=== PATIENT | female | born 1955 | race African-American/Black ===

== ENCOUNTER 2020-02-18 09:20 | Inpatient (IN) | payer OTHER ==
[2020-02-18] VITALS (10 sets, daily range): BP systolic 85–135; BP diastolic 29–83
[~2020-02-18] VITALS: Ht 167.6 cm; Wt 100.2 kg
--- NOTE | 2020-02-18 09:20 | NUR ---
PT BIBRA FROM HOME C/O SOB FOR 3 DAYS MUCH WORSE TODAY, PT IS AAOX4, NOTED INCREASED RESPIRATION, HOOKED TO O2 AT 2 LPM VIA NC, HOOKED TO DRUG SAFETY COORDINATOR, KEPT RESTED AND COMFORTABLE, WILL CONTINUE TO MONITOR.
--- NOTE | 2020-02-18 09:25 | NUR ---
SEEN AND EXAMINED BY
--- NOTE | 2020-02-18 09:35 | NUR ---
IV LINE ESTABLISHED, BLOOD DRAWN AND SENT TO LAB.
[2020-02-18] MEDS ORDERED: FAMO20TA8 PO (09:43)
[2020-02-18] MEDS ORDERED: DOCU100C58 PO (09:43)
[2020-02-18] MEDS ORDERED: HYDR25TA4 PO (09:43)
[2020-02-18] MEDS ORDERED: DICL100G34 TD (09:43)
[2020-02-18] MEDS ORDERED: ACET1TAB12 PO (09:43)
[2020-02-18] MEDS ORDERED: HYDR-4354 PO (09:43)
[2020-02-18] MEDS ORDERED: METO25TA4 PO (09:43)
[2020-02-18] MEDS ORDERED: ASPI-1152 PO (09:43)
[2020-02-18] MEDS ORDERED: IBUP-1492 PO (09:43)
[2020-02-18] MEDS ORDERED: HYDR-4384 PO (09:43)
[2020-02-18] MEDS ORDERED: PRED20TA PO (09:43)
[2020-02-18] MEDS ORDERED: LISI-603 PO (09:43)
[2020-02-18] MEDS ORDERED: LORA-259 PO (09:43)
[2020-02-18] MEDS ORDERED: [UNRECOGNIZED DRUG - CODE] PO (09:43)
[2020-02-18] MEDS ORDERED: LOSA50TA39 PO (09:43)
[2020-02-18] MEDS ORDERED: AMLO5TAB4 PO (09:43)
[2020-02-18] MEDS ORDERED: MELO-107 PO (09:43)
[2020-02-18] MEDS ORDERED: FERR325T24 PO (09:43)
[2020-02-18] MEDS ORDERED: TRAM50TA2 PO (09:43)
[2020-02-18 09:47] LABS: BASOPHILS # (AUTO) 0.1 /CMM (0.0-0.2); BASOPHILS % (AUTO) 0.6 % (0.0-2.0); HEMATOCRIT 27 % (33-45); HEMOGLOBIN 8.3 g/dL (11.5-14.8); LYMPHOCYTES # (AUTO) 2.2 /CMM (0.8-4.8); LYMPHOCYTES % (AUTO) 17.6 % (20.0-44.0); MEAN CORPUSCULAR HGB CONC 30 g/dl (31.0-36.0); MEAN CORPUSCULAR VOLUME 64 fL (82-100); MONOCYTES # (AUTO) 0.5 /CMM (0.1-1.30); MONOCYTES % (AUTO) 3.7 % (2.0-12.0); NEUTROPHILS # (AUTO) 9.9 /CMM (1.8-8.9); NEUTROPHILS % (AUTO) 78.1 % (43.0-81.0); PLATELET COUNT (AUTO) 173 /CMM (150-450); RED BLOOD CELL COUNT(AUTO) 4.31 MIL/uL (4.0-5.2); WHITE BLOOD COUNT (AUTO) 12.7 K/uL (4.3-11.0)
--- NOTE | 2020-02-18 09:50 | NUR ---
[employer] AT BEDSIDE FOR XRAY.
[2020-02-18 09:55] LABS: CALCIUM, SERUM 10.3 mg/dL (8.5-10.1); CARBON DIOXIDE 22 mmol/L (21-32); CHLORIDE 105 mmol/L (98-107); CREATININE 2.4 mg/dL (0.6-1.3); GLUCOSE 178 mg/dL (74-106); POTASSIUM 4.1 mmol/L (3.5-5.1); SODIUM SERUM 140 mmol/L (136-145); UREA NITROGEN, BLOOD 55 mg/dL (7-18)
[2020-02-18 10:07] LABS: ALANINE AMINOTRANSFERASE 57 U/L (12-78); ALBUMIN 3.4 g/dL (3.4-5.0); ALKALINE PHOSPHATASE 118 U/L (46-116); ASPARTATE AMINOTRANSFERASE 70 U/L (15-37); B-TYPE NATRIURETIC PEPTIDE 9746 PG/ML (0-125); BILIRUBIN,DIRECT 0.4 mg/dL (0.0-0.2); BILIRUBIN,TOTAL 1.2 mg/dL (0.2-1.0); TOTAL PROTEIN, SERUM 7.8 g/dL (6.4-8.2)
[2020-02-18] MEDS ORDERED: ASPIRIN 325 MG TABLET ONE (10:16)
[2020-02-18] MEDS ORDERED: CEFTRIAXONE 1GM BAG (ER ONLY) 50 ML IV ONE ×2 (10:16→10:30)
[2020-02-18] MEDS ORDERED: ASPIRIN 81 MG TAB.CHEW PO ONE (10:30)
[2020-02-18] MEDS ORDERED: AZITHROMYCIN 500 MG in IV D5W 250 ML IV ONE (10:30)
--- NOTE | 2020-02-18 10:48 | NUR ---
PAGED [facility].
--- NOTE | 2020-02-18 10:59 | NUR ---
CALLED NURSING SUP FOR [facility] BED.
--- NOTE | 2020-02-18 10:59 | NUR ---
BRETT HIDALGO AT BEDSIDE FOR EVAL.
[2020-02-18] MEDS ORDERED: HYDROMORPHONE INJ 2 MG/ML DISP.SYRIN IV ONE (11:00)
[2020-02-18] MEDS ORDERED: IV NS 0.9% 500 ML BAG IV ONE (11:00)
[2020-02-18] MEDS ORDERED: ONDANSETRON HCL/PF 4 MG/2 ML VIAL IVP ONE (11:00)
[2020-02-18] MEDS ORDERED: ONDANSETRON HCL/PF 4 MG/2 ML VIAL ONE (11:08)
[2020-02-18] MEDS ORDERED: HYDROMORPHONE 1 MG/1 ML DISP.SYRIN ONE (11:10)
[2020-02-18] MEDS ORDERED: IV NS 0.9% 1,000 ML IV PRN ×3 (11:12→15:00)
[2020-02-18] MEDS ORDERED: Z GUARD REMEDY 2 OZ OINT TP PRN (11:30)
[2020-02-18] MEDS ORDERED: MAG HYDROX/AL HYDROX/SIMETH 30 ML UDC PO PRN (11:30)
[2020-02-18] MEDS ORDERED: MAGNESIUM HYDROXIDE 30 ML UDC PO PRN (11:30)
[2020-02-18] MEDS ORDERED: ACETAMINOPHEN 325 MG TABLET PO PRN (11:30)
[2020-02-18] MEDS ORDERED: ONDANSETRON HCL/PF 4 MG/2 ML VIAL IVP PRN (11:30)
--- NOTE | 2020-02-18 11:31 | NUR ---
NURSING SUP GAVE TELE BED 308-1.
[2020-02-18 12:22] LABS: ABG BASE EXCESS -8.7 mmol/L; ABG OXYGEN SATURATION 88.7 % (92.0-98.5); ABG PH 7.337 (7.350-7.450); ABG PO2 69.1 mmHg (75.0-100.0); COHb 0.7 % (0.5-1.5); MetHb 0.9 % (0.0-1.5); O2Hb 87.3 % (94.0-97.0); SITE, ABG Left Radial; VENT MODE, BG 2l found pt off 02
[2020-02-18 12:24] LABS: APPEARANCE,URINE Cloudy (CLEAR); BILIRUBIN,URINE Negative (NEGATIVE); BLOOD, URINE Large Ery/uL (NEGATIVE); COLOR,URINE Yellow (YELLOW); KETONES,URINE Negative (NEGATIVE); LEUKOCYTE ESTERASE ,URINE Moderate (NEGATIVE); NITRITE, URINE Negative (NEGATIVE); PH,URINE 5.5 (5.0-8.0); PROTEIN,URINE 30 mg/dl (NEGATIVE); UGLUCOSE Negative (NEGATIVE)
[2020-02-18 12:37] LABS: RBC,URINE TOO NUMEROUS TO COUN /HPF (0-2)
[2020-02-18 12:38] LABS: BACTERIA,URINE Many /HPF (None Seen); SQUAMOUS EPITHELIAL CELL,UR Few /HPF (None Seen)
--- NOTE | 2020-02-18 12:40 | NUR ---
REPORT GIVEN TO SHERYL MURILLO FOR WILMA.
--- NOTE | 2020-02-18 13:50 | NUR ---
TOBACCO PACKER NOTES RECEIVED PATIENT FROM ER 64 Y/OLD ON [facility] Dx OF PNM, SOB. PATIENT A/O X3, ON 02-3L NC WAS COMPLAINING OF DIFFICULTY BREATHING. V/S TAKEN T 97.4, P-73, R-24, BP-111/75, O2-92 2LNC. IV ACCESS ON LEFT AC AREA INTACT STARTED NS AT 50 ML/HR. TELE MONITOR ON SR-73. PATIENT AMBULATORY, SKIN ASSESSMENT DONE, NEEDS ATTENDED AND ANTICIPATED, HOSPITALIST AWARE OF NEW ADMISSION AND MEDICATION. CALL LIGHT WITHIN TO REACH. CONTINUED MONITORING.
--- NOTE | 2020-02-18 14:52 | NUR ---
rn notes get lab result for critical lab lactic acid 5.9 notified hospitalist Lauro HIDALGO get order NS bolus 1L, CT abdomen , recheck after bolus lactic acid.order taken and carried out.l
--- NOTE | 2020-02-18 14:56 | NUR ---
RN NOTES MIDLINE INSERTED BY BORING MACHINE SET UP OPERATOR JESUS RIGHT UPPER ARM INTACT.
[2020-02-18] MEDS: HYDROCODONE/APAP 5/325MG 1 EACH TABLET PO PRN ×2 (15:07→21:32)
--- NOTE | 2020-02-18 15:07 | NUR ---
RN NOTES ADMINISTERED NARCO 5/325 MG PO PRN FOR GENERALIZED PAIN 06/16 PER PATIENT REQUEST, V/S TAKEN BP 139. 59, P-73, R-24. CONTINUED MONITORING.
[2020-02-18] MEDS ORDERED: FUROSEMIDE 40 MG/4 ML VIAL IV ONE (17:00)
[2020-02-18] MEDS: FAMOTIDINE (20 MG) 20 MG TABLET PO SCH (17:31)
[2020-02-18] MEDS: MORPHINE SULFATE INJ 2 MG/ML DISP.SYRIN IV PRN ×2 (17:31→21:34)
[2020-02-18] MEDS: DOCUSATE SODIUM 100 MG CAPSULE PO SCH (17:31)
--- NOTE | 2020-02-18 17:31 | NUR ---
rn notes administered morphine sulfate 2 mg/ml iv push for upper chest pain 06/07 per patient request, v/s taken bp-120/83, p-73. r-22. keep hob elevated al the time.
--- NOTE | 2020-02-18 18:02 | NUR ---
RN NOTES MEDICATION WERE ADMINISTERED FOR PAIN EFFECTIVE, V/S STABLE PATIENT CALM, NO ACUTE RESPIRATORY DISTRESS. PER HOSPITALIST WALTER NEEDLE BOARD REPAIRER PATIENT WILL TRANSFER TO ICE FOR BIPAP NEED. ADMINISTERED SCHEDULED MEDICATION, V/S STABLE, O2-3.L NC. CALL LIGHT WITHIN TO REACH. ENDORSED ONCOMING NURSE FOLLOW PLAN OF CARE.
--- NOTE | 2020-02-18 18:25 | NUR ---
RN NOTES RECEIVED PATIENT FROM [facility], REPORT FROM SHERYL OSCAR. PATIENT TRANSFERRED FOR BIPAP RESCUE, CURRENTLY ON NASAL CANNULA WITH O2 AT 5LPM SATING 90-91% INITIALLY. PATIENT ATTACHED TO THE MONITOR, SINUS RHYTHM UPON CHECKING.PATIENT ABLE TO RESPOND APPROPRIATELY. PATIENT ABLE TO MOVE ABOUT IN BED AND IS ABLE TO FOLLOW COMMANDS. MADE COMFORTABLE IN BED. CALL LIGHT PLACED WITHIN REACH. WILL CARRY OUT PENDING ORDERS
--- NOTE | 2020-02-18 18:43 | NUR ---
rn notes Transferred patient to the ICU per hospitalist BOOK STORE ASSOCIATE Lauro order, need BIPAP, v/s stable . on o2-3lnc. patient has no acute respiratory distress, belonging with the patient. Report given sericulture teacher Ally follow up plan of care.
[2020-02-18] MEDS: Sodium Bicarbonate 150 MEQ in IV D5W 1,000 ML IV PRN (18:45)
--- NOTE | 2020-02-18 19:31 | NUR ---
RN NOTES ENDORSED FOR CONTINUITY OF CARE. PATIENT ABI ON BED, ON NASAL CANNULA WITH OXYGEN AT 5LPM. NO SIGN OF DISTRESS AT THIS TIME. WITH ONGOING SODIUM BICARBONATE AT 75CC/HR. CALL LIGHT WITHIN REACH
[2020-02-18 20:22] LABS: ABG BASE EXCESS -9.1 mmol/L; ABG PCO2 32.2 mmHg (35.0-45.0); ABG PH 7.317 (7.350-7.450); ABG PO2 80.9 mmHg (75.0-100.0); AaDO2 167.3 mmHg; COHb 1.2 % (0.5-1.5); MetHb 0.7 % (0.0-1.5); O2Hb 90.3 % (94.0-97.0); SITE, ABG Right Radial; VENT MODE, BG Nasal Cannula
[2020-02-18] MEDS: LORAZEPAM 1 MG TABLET PO PRN (21:33)
[2020-02-18] MEDS: LIDOCAINE 5% (PATCH) 1 EA PATCH TP SCH (22:21)
--- NOTE | 2020-02-18 22:39 | NUR ---
campbell catheter inserted by female RN, good urine output clear
[2020-02-19] VITALS (24 sets, daily range): BP systolic 90–154; BP diastolic 45–98
[2020-02-19 00:13] LABS: ABG BASE EXCESS -8.5 mmol/L; ABG OXYGEN SATURATION 96.8 % (92.0-98.5); ABG PCO2 30.5 mmHg (35.0-45.0); ABG PH 7.345 (7.350-7.450); ABG PO2 121.1 mmHg (75.0-100.0); AaDO2 244.3 mmHg; COHb 0.8 % (0.5-1.5); MetHb 1.2 % (0.0-1.5); O2Hb 94.9 % (94.0-97.0); SITE, ABG Right Radial; VENT MODE, BG Nasal Cannula
[2020-02-19] MEDS: MORPHINE SULFATE INJ 2 MG/ML DISP.SYRIN IV PRN ×3 (01:55→22:55)
[2020-02-19 05:14] LABS: BASOPHILS # (AUTO) 0.2 /CMM (0.0-0.2); BASOPHILS % (AUTO) 0.9 % (0.0-2.0); EOSINOPHILS % (AUTO) 0.1 % (0.0-6.0); HEMATOCRIT 24 % (33-45); HEMOGLOBIN 7.4 g/dL (11.5-14.8); LYMPHOCYTES # (AUTO) 5.6 /CMM (0.8-4.8); LYMPHOCYTES % (AUTO) 28.5 % (20.0-44.0); MEAN CORPUSCULAR HGB CONC 32 g/dl (31.0-36.0); MEAN CORPUSCULAR VOLUME 62 fL (82-100); MONOCYTES # (AUTO) 0.8 /CMM (0.1-1.30); NEUTROPHILS % (AUTO) 66.5 % (43.0-81.0); PLATELET COUNT (AUTO) 149 /CMM (150-450); RED BLOOD CELL COUNT(AUTO) 3.82 MIL/uL (4.0-5.2)
[2020-02-19 05:44] LABS: CALCIUM, SERUM 9.8 mg/dL (8.5-10.1); CREATININE 2.8 mg/dL (0.6-1.3); MAGNESIUM 2.6 mg/dL (1.8-2.4); PHOSPHORUS 6.5 mg/dL (2.5-4.9); POTASSIUM 4.1 mmol/L (3.5-5.1)
[2020-02-19] MEDS: HYDROCODONE/APAP 5/325MG 1 EACH TABLET PO PRN (05:52)
[2020-02-19 06:11] LABS: BAND % (MANUAL) 2 % (0.0-5.0); LYMPHOCYTES % (MANUAL) 21 % (16-48); METAMYELOCYTES % 1 % (0-0); MONOCYTES % (MANUAL) 1 % (0-11.0); MYELOCYTES % 1 % (0-0); NEUTROPHILS % (MANUAL) 74 (42-76); WHITE BLOOD COUNT (AUTO) 19.5 K/uL (4.3-11.0)
[2020-02-19 06:17] LABS: THYROID STIMULATING HORMONE 3.519 uIU/mL (0.358-3.74)
--- NOTE | 2020-02-19 07:30 | NUR ---
RN NOTES RECEIVED PATIENT IN BED, CALMLY SLEEPING. AWAKEN BY VERBAL STIMULI, ABLE TO RESPOND APPROPRIATELY. WITH NASAL CANNULA, OXYGEN AT 6LPM, SATING 96%. BREATHING UNLABORED. NO INDICATION OF PAIN NOTED AT THIS TIME. SINUS RHYTHM ON THE MONITOR WITH HR ON THE 80s. ZULETA CATHETER IN PLACE, DRAINING TO CLEAR YELLOW URINE. SAFETY MEASURES IN PLACE. BED IN LOW IN AND LOCK POSITION. CALL LIGHT PLACED WITHIN REACH. WILL CONTINUE TO MONITOR PATIENT ACCORDINGLY
[2020-02-19] MEDS ORDERED: METOPROLOL SUCCINATE 25 MG TAB.SR.24H PO SCH (09:00)
[2020-02-19] MEDS ORDERED: predniSONE 20 MG TABLET PO SCH (09:00)
[2020-02-19] MEDS ORDERED: AMLODIPINE BESYLATE 5 MG TABLET PO SCH (09:00)
[2020-02-19] MEDS ORDERED: ASPIRIN EC 81 MG TABLET.DR PO SCH (09:00)
[2020-02-19] MEDS: FAMOTIDINE (20 MG) 20 MG TABLET PO SCH ×2 (09:00→17:00)
[2020-02-19] MEDS: DOCUSATE SODIUM 100 MG CAPSULE PO SCH ×2 (09:00→17:00)
[2020-02-19] MEDS ORDERED: FERROUS SULFATE (325 MG) 325 MG/TAB TABLET PO SCH (09:00)
--- NOTE | 2020-02-19 09:00 | NUR ---
RN NOTES] MEDICATION NOT ADMINISTERED NPO STATUS. WILL CLARIFY ORDERS WITH
[2020-02-19] MEDS ORDERED: CEFTRIAXONE 1 G in IV D5W 50 ML IV SCH (10:00)
[2020-02-19] MEDS: methylPREDNISolone SOD SUCC 125 MG/2ML VIAL IV SCH ×5 (10:12→23:37)
[2020-02-19] MEDS: Sodium Bicarbonate 150 MEQ in IV D5W 1,000 ML IV PRN (10:35)
[2020-02-19] MEDS: LORAZEPAM 1 MG TABLET PO PRN (10:35)
[2020-02-19] MEDS ORDERED: AZITHROMYCIN 500 MG in IV D5W 250 ML IV SCH (11:00)
--- NOTE | 2020-02-19 11:00 | NUR ---
SHERYL NOTES BIPAP PLACED BY RT DUE TO PATIENT TACHYPNEIC AND DESATURATING. TO < 90%. WILL CONTINUE TO MONITOR. Addendum: 02/20/20 at 0038 by GILSON AVENDAÑO RN WRONG TIMING TIME AT 2300
--- NOTE | 2020-02-19 12:00 | NUR ---
RN NOTES PATIENT NOTED WITH CONFUSION/ RESTLESSNESS, WITH MULTIPLE ATTEMPTS TO GET OUT OF BED. KEEP REPEATING "I JUST WANT TO GO HOME" "LET ME OUT" Addendum: 02/19/20 at 1953 by DAVID FAIRCHILD RN INFORMED DR. TOURE ON PATIENT BEING CONFUSED AT THIS TIME. EVEN PULLED MIDLINE. NNO AT THIS TIME
--- NOTE | 2020-02-19 17:00 | NUR ---
RN NOTES MEDICATION NOT ADMINISTERED. PATIENT CONFUSED. UNABLE TO FOLLOW COMMANDS
[2020-02-19] MEDS ORDERED: IV NS 0.9% 250 ML IV PRN (17:30)
--- NOTE | 2020-02-19 19:30 | NUR ---
RN NOTES RECEIVED PATIENT ON BED APHASIC, MOANED AND RESTLESS. WITH O2 5LPM VIA NC SATURATION WELL. AFEBRILE. VSS AT THIS TIME ST ON TELE MONITOR. WITH KRAIG MIDLINE INTACT AND PATENT RUNNING WITH SODIUM BICARB @ 75 ML/HR. PATIENT HAS ZULETA CATH WITH GOOD AMT OF YELLOWISH CLOUDY URINE. KEPT PT CLEAN AND DRY. TURNED AND REPOSITIONED Q2H AND PRN. KEPT CLEAN AND DRY. WILL CONTINUE TO MONITOR.
[2020-02-19 21:01] LABS: CREATININE, URINE 127.4 MG/DL (30.0-125.0); URINE TOTAL PROTEIN 102.7 mg/dL (0-11.9)
[2020-02-19 21:02] LABS: APPEARANCE,URINE SL CLOUDY (CLEAR); BILIRUBIN,URINE NEGATIVE (NEGATIVE); BLOOD, URINE LARGE Ery/uL (NEGATIVE); COLOR,URINE YELLOW (YELLOW); KETONES,URINE NEGATIVE (NEGATIVE); LEUKOCYTE ESTERASE ,URINE TRACE (NEGATIVE); NITRITE, URINE NEGATIVE (NEGATIVE); PH,URINE 5.5 (5.0-8.0); PROTEIN,URINE 100 mg/dl (NEGATIVE); UGLUCOSE NEGATIVE (NEGATIVE); UROBILINOGEN,URINE 0.2 EU/dL (0.2)
[2020-02-19 21:08] LABS: BACTERIA,URINE 1+ /HPF (None Seen); RBC,URINE TOO NUMEROUS TO COUN /HPF (0-2); SQUAMOUS EPITHELIAL CELL,UR Few /HPF (None Seen); WBC,URINE 21-50 /HPF (0-3)
[2020-02-19 21:58] LABS: EOSINOPHIL,URINE None Seen
[2020-02-19] MEDS: LIDOCAINE 5% (PATCH) 1 EA PATCH TP SCH (21:58)
--- NOTE | 2020-02-19 23:00 | NUR ---
RN NOTES BIPAP PLACED BY RT DUE TO PATIENT TACHYPNEIC AND DESATURATING. TO < 90%. WILL CONTINUE TO MONITOR.
[2020-02-20] VITALS: BP 111/62
--- NOTE | 2020-02-20 00:11 | NUR ---
PT PLACED PT ON BIPAP DUE TO INCREASED RR AND DECREASED SPO2. RN AWARE Addendum: 02/20/20 at 0012 by CARISA SLAUGHTER RT Amended: Links added.
[2020-02-20 01:00] VITALS: BP 95/67
[2020-02-20 02:00] VITALS: BP 113/84
[2020-02-20] MEDS: Sodium Bicarbonate 150 MEQ in IV D5W 1,000 ML IV PRN (02:46)
[2020-02-20 03:02] VITALS: BP 83/65
[2020-02-20 03:07] VITALS: BP 56/40
[2020-02-20] MEDS ORDERED: NOREPINEPHRINE 4 MG/4 ML AMPUL IV ONE (03:15)
[2020-02-20] MEDS ORDERED: NOREPINEPHRINE 8 MG in IV NS 0.9% 242 ML IV PRN (03:30)
[2020-02-20] MEDS ORDERED: SODIUM BICARBONATE SYR 50 MEQ/50 ML DISP.SYRIN IV ONE ×2 (03:52)
[2020-02-20] MEDS ORDERED: EPINEPHRINE (1:10,000) SYRINGE 1 MG/10 ML DISP.SYRIN IVP ONE ×2 (03:52)
--- NOTE | 2020-02-20 03:55 | NUR ---
about 0315 rt called to pt bedside for code blue. pt found with cpr in progress ventilated via ambu bag via mask. rosc achieved pt ventilated via mask ambu bag. pt intubated by with 7.5ett @23cm. cpr initiated with loss of pulse. cpr continued throughout codes. rt remained at pt bedside till 0400 preforming compressions and ventilating with ambu bag via ett.
--- NOTE | 2020-02-20 05:30 | NUR ---
RN NOTES 0250- PATIENT NOTED TACHYPNEIC AND TACHYCARDIC HR WENT UP TO 120'S 02 SATURATION ON <88%, RIB STIFFENER AND HEEL DIPPER CALLED 0303 - PT IS UNRESPONSIVE WITH FIXED AND DILATED PUPIL. NO RISE AND FALL, NO PULSE TELE MONITOR REVEALS PEA CODE BLUE INITIATED. CPR STARTED. INTUBATED BY DR. THORPE WITH ETT 7.5 AND 23 CM AT LIPLINE. ACLS PROTOCOL FOLLOWS WITH ROSC 0321 - ASYSTOLE NOTED AND CONTINUE ACLS PROTOCOL ( SEE CALLED BLUE RECORD) PT REMAINED CRITICALLY ILL GWEN GALVEZ AT BEDSIDE AT THIS TIME. TRYING TO CALL ANY FAMILY MEMBER BUT UNABLE TO CONTACT NO PHONE NUMBER STATED. 0353 - PT REMAINED ON PEA AND ASYSTOLE , PT PRONOUNCED BY MANUEL HIDALGO. 0500 - NOTED VIA PT PHONE THAT SON NUPUR TEXTED HIS MOM, UNABLE TO GET PASS CODE BUT ABLE TO TXT BACK SON TO CALL IN THE HOSPITAL . GOT HOLD FROM THE SON AND INFORMED THAT THE PATIENT . NUPUR SON WILL COME TO SEE HER MOM. MANUEL HIDALGO MADE AWARE.
--- NOTE | 2020-02-20 06:26 | NUR ---
RN NOTES NUPUR CHRISTIANSON (SON) CAME BY AND GIVE ALL BELONGINGS OF HER MOM, INSTRUCTION GIVEN TO CALL [employer] FILTER[employer] IF THEY FIND MORTUARY TO LET US KNOW. PAPER SIGNED TO RELEASE THE BODY.
== END 2020-02-20 03:53 | disposition expired | DRG 133 ==
LOC: ER 09:27 → TELE 11:37 → TELE-TD 12:39 → ICU 18:30
PROVIDERS: ADMIT Nurse Practitioner Acute Care; ATTEND Registered Nurse
PROC: 05H533Z Insertion of Infusion Device into Right Subclavian Vein, Percutaneous Approach (ICD-10-PCS; principal; 2020-02-18)
PROC: 05H633Z Insertion of Infusion Device into Left Subclavian Vein, Percutaneous Approach (ICD-10-PCS; 2020-02-19)
PROC: 5A2204Z Restoration of Cardiac Rhythm, Single (ICD-10-PCS; 2020-02-20)
PROC: 5A12012 Performance of Cardiac Output, Single, Manual (ICD-10-PCS; 2020-02-20)
PROC: 0BH18EZ Insertion of Endotracheal Airway into Trachea, Via Natural or Artificial Opening Endoscopic (ICD-10-PCS; 2020-02-20)
DX: J96.01 Acute respiratory failure with hypoxia (principal); I21.A1 Myocardial infarction type 2; J15.9 Unspecified bacterial pneumonia; N17.9 Acute kidney failure, unspecified; E87.2 Acidosis; I13.0 Hypertensive heart and chronic kidney disease with heart failure and stage 1 through stage 4 chronic kidney disease, or unspecified chronic kidney disease; I50.9 Heart failure, unspecified; N12 Tubulo-interstitial nephritis, not specified as acute or chronic; J44.0 Chronic obstructive pulmonary disease with (acute) lower respiratory infection; I49.01 Ventricular fibrillation; D50.9 Iron deficiency anemia, unspecified; E66.9 Obesity, unspecified; I25.10 Atherosclerotic heart disease of native coronary artery without angina pectoris; J44.1 Chronic obstructive pulmonary disease with (acute) exacerbation; N18.9 Chronic kidney disease, unspecified; Z86.73 Personal history of transient ischemic attack (TIA), and cerebral infarction without residual deficits; Z87.891 Personal history of nicotine dependence; D56.9 Thalassemia, unspecified; Z68.35 Body mass index [BMI] 35.0-35.9, adult; J40 Bronchitis, not specified as acute or chronic; R74.0 Nonspecific elevation of levels of transaminase and lactic acid dehydrogenase [LDH]; E80.6 Other disorders of bilirubin metabolism; G47.33 Obstructive sleep apnea (adult) (pediatric); I25.2 Old myocardial infarction; M87.9 Osteonecrosis, unspecified; Z96.651 Presence of right artificial knee joint
CPT/HCPCS: 36415; 36600; 71045-TC; 71250-TC; 76700-TC; 80048-TC; 80061-TC; 80076-TC; 81000-TC; 82570-TC; 82803-TC; 83605-TC; 83735-TC; 83880; 84100-TC; 84155-TC; 84300-TC; 84443-TC; 84484-TC; 85025-TC; 85730-TC; 87040-TC; 87081-TC; 87086-TC; 93307-TC; 94799-TC; G0378; J0171; J0456; J0696; J1170; J1940; J2270; J2405; J2930; J3490; J7030; J7040; J7050; J7060; J7070